=== PATIENT | female | born 1945 | race Caucasian/White ===

== ENCOUNTER 2024-06-05 15:04 | Inpatient (IN) | payer BC ==
[~2024-06-05] VITALS: Ht 160 cm; Wt 88.0 kg
[2024-06-05 15:48] LABS: BASOPHILS % (AUTO) 0.6 % (0.0-2.0); EOSINOPHILS # (AUTO) 0.2 K/uL (0.0-0.7); EOSINOPHILS % (AUTO) 2.7 % (0.0-6.0); HEMATOCRIT 35 % (33-45); HEMOGLOBIN 11.9 g/dL (11.5-14.8); LYMPHOCYTES % (AUTO) 13.6 % (20.0-44.0); MEAN CORPUSCULAR HEMOGLOBIN 31 PG (26.0-33.0); MEAN CORPUSCULAR HGB CONC 34 g/dl (31.0-36.0); MEAN CORPUSCULAR VOLUME 90 fL (82-100); MONOCYTES # (AUTO) 0.5 K/uL (0.1-1.30); MONOCYTES % (AUTO) 6.2 % (2.0-12.0); NEUTROPHILS # (AUTO) 5.9 K/uL (1.8-8.9); NEUTROPHILS % (AUTO) 76.9 % (43.0-81.0); PLATELET COUNT (AUTO) 146 K/uL (150-450); RED CELL DISTRIBUTION WIDTH 14.2 % (11.5-15.0); WHITE BLOOD COUNT (AUTO) 7.7 K/uL (4.3-11.0)
[2024-06-05 16:00] LABS: CALCIUM, SERUM 9.1 mg/dL (8.5-10.1); CARBON DIOXIDE 29 mmol/L (21-32); CHLORIDE 108 mmol/L (98-107); CREATININE 1.3 mg/dL (0.6-1.3); GLUCOSE 111 mg/dL (74-106); POTASSIUM 4.5 mmol/L (3.5-5.1); SODIUM SERUM 145 mmol/L (136-145); UREA NITROGEN, BLOOD 25 mg/dL (7-18)
[2024-06-05 16:13] LABS: ALANINE AMINOTRANSFERASE 58 U/L (12-78); ALBUMIN 3.6 g/dL (3.4-5.0); ASPARTATE AMINOTRANSFERASE 33 U/L (15-37); BILIRUBIN,DIRECT 0.2 mg/dL (0.0-0.2); BILIRUBIN,TOTAL 0.7 mg/dL (0.2-1.0); NT-PRO BNP 5933 pg/mL (0-125); TOTAL PROTEIN, SERUM 6.8 g/dL (6.4-8.2)
[2024-06-05] MEDS ORDERED: SERT100T12 PO (16:14)
[2024-06-05] MEDS ORDERED: CALC-952 PO (16:14)
[2024-06-05] MEDS ORDERED: DIGO250T PO (16:14)
[2024-06-05] MEDS ORDERED: APIX5TAB PO (16:14)
[2024-06-05] MEDS ORDERED: LEVO175T7 PO (16:14)
[2024-06-05] MEDS ORDERED: METO50TA7 PO (16:14)
[2024-06-05] MEDS ORDERED: ATOR20TA PO (16:14)
[2024-06-05] MEDS ORDERED: IRON PO (16:14)
[2024-06-05] MEDS ORDERED: METO-357 PO (16:14)
[2024-06-05] MEDS ORDERED: VITAMIN C PO (16:14)
[2024-06-05 16:25] LABS: ALKALINE PHOSPHATASE 113 U/L (46-116)
[2024-06-05] MEDS ORDERED: IOHEXOL-350 100 ML VIAL IV ONE (17:35)
[2024-06-05] MEDS ORDERED: IV NS 0.9% 250 ML IV ONE (17:36)
[2024-06-05] MEDS ORDERED: CT SWABBABLE VALVE TRANS SET 1 EA INFUS.SET MC ONE (17:36)
[2024-06-05] MEDS ORDERED: hydrALAZINE HCL IV 20 MG VIAL IV PRN (18:00)
[2024-06-05] MEDS ORDERED: ONDANSETRON HCL/PF 4 MG/2 ML VIAL IVP PRN (18:00)
[2024-06-05] MEDS ORDERED: ACETAMINOPHEN 325 MG TABLET PO PRN (18:00)
[2024-06-05] MEDS: DIGOXIN 0.25 MG TABLET PO SCH (18:00)
[2024-06-05] MEDS: FUROSEMIDE 20 MG/2 ML VIAL IV SCH (18:23)
[2024-06-05] MEDS: FUROSEMIDE 40 MG/4 ML VIAL IV ONE (19:30)
[2024-06-05] MEDS: AZITHROMYCIN 500 MG in IV D5W 250 ML IV ONE (20:00)
[2024-06-05] MEDS ORDERED: FUROSEMIDE 20 MG/2 ML VIAL ONE (20:26)
[2024-06-05] MEDS ORDERED: CEFTRIAXONE 1GM BAG (ER ONLY) 50 ML IV ONE (20:27)
[2024-06-05] MEDS: AZITHROMYCIN 500 MG in IV D5W 250 ML IV SCH (20:30)
[2024-06-05] MEDS: ASPIRIN 325 MG TABLET PO ONE (20:30)
[2024-06-05] MEDS: CEFTRIAXONE 1 G in IV D5W 50 ML IV SCH (20:30)
[2024-06-05] MEDS: CEFTRIAXONE 1GM BAG (ER ONLY) 1 GM/50 ML PIGGYBACK IV ONE (20:59)
[2024-06-05] MEDS ORDERED: AZITHROMYCIN 500 MG VIAL ONE (21:04)
[2024-06-05] MEDS: ATORVASTATIN 10 MG TABLET PO SCH (22:00)
[2024-06-05] MEDS: METOPROLOL SUCCINATE 50 MG TAB.SR.24H PO SCH (22:00)
[2024-06-05] MEDS ORDERED: ATORVASTATIN 10 MG TABLET ONE (22:48)
[2024-06-06 04:00] VITALS: BP 138/53; TEMP 97.9; O2SAT 93
[2024-06-06 07:01] LABS: BASOPHILS % (AUTO) 0.4 % (0.0-2.0); EOSINOPHILS # (AUTO) 0.2 K/uL (0.0-0.7); EOSINOPHILS % (AUTO) 3.4 % (0.0-6.0); HEMATOCRIT 34 % (33-45); HEMOGLOBIN 11.6 g/dL (11.5-14.8); LYMPHOCYTES # (AUTO) 0.9 K/uL (0.8-4.8); LYMPHOCYTES % (AUTO) 14.1 % (20.0-44.0); MEAN CORPUSCULAR HEMOGLOBIN 31 PG (26.0-33.0); MEAN CORPUSCULAR HGB CONC 34 g/dl (31.0-36.0); MEAN CORPUSCULAR VOLUME 91 fL (82-100); MONOCYTES # (AUTO) 0.5 K/uL (0.1-1.30); MONOCYTES % (AUTO) 8.1 % (2.0-12.0); NEUTROPHILS # (AUTO) 4.5 K/uL (1.8-8.9); PLATELET COUNT (AUTO) 122 K/uL (150-450); RED BLOOD CELL COUNT(AUTO) 3.71 MIL/uL (4.0-5.2); RED CELL DISTRIBUTION WIDTH 14.5 % (11.5-15.0); WHITE BLOOD COUNT (AUTO) 6.1 K/uL (4.3-11.0)
[2024-06-06 07:18] LABS: ALBUMIN 3.5 g/dL (3.4-5.0); BILIRUBIN,TOTAL 0.9 mg/dL (0.2-1.0); CALCIUM, SERUM 9.1 mg/dL (8.5-10.1); CREATININE 1.1 mg/dL (0.6-1.3); PHOSPHORUS 4.2 mg/dL (2.5-4.9); POTASSIUM 3.9 mmol/L (3.5-5.1); TOTAL PROTEIN, SERUM 6.4 g/dL (6.4-8.2)
[2024-06-06] MEDS: APIXABAN 5 MG TABLET PO SCH (08:41)
[2024-06-06] MEDS: METOPROLOL SUCCINATE 50 MG TAB.SR.24H PO SCH (08:46)
[2024-06-06] MEDS: LEVOTHYROXINE SODIUM 175 MCG TABLET PO SCH (08:47)
[2024-06-06] MEDS: SERTRALINE HCL 50 MG TABLET PO SCH (08:47)
[2024-06-06 09:00] VITALS: BP 134/49; TEMP 98.1; O2SAT 93
[2024-06-06 13:00] VITALS: BP 129/51; TEMP 98.1; O2SAT 91
[2024-06-06 17:00] VITALS: BP 129/51; TEMP 98.2; O2SAT 97
[2024-06-06 20:59] VITALS: BP 139/53; TEMP 98.2; O2SAT 97
[2024-06-06] MEDS: MORPHINE SULFATE INJ 2 MG/ML DISP.SYRIN IV PRN (22:36)
[2024-06-07 00:34] VITALS: BP 135/55; TEMP 98.5; O2SAT 98
[2024-06-07 05:58] VITALS: BP 140/58; TEMP 98.8; O2SAT 97
[2024-06-07] MEDS ORDERED: METO-357 PO (07:05)
[2024-06-07] MEDS ORDERED: FURO20TA4 PO (07:05)
[2024-06-07] MEDS ORDERED: LEVO750T46 PO (07:05)
[2024-06-07] MEDS ORDERED: NITR0.4T48 SL (07:06)
[2024-06-07] MEDS: FUROSEMIDE 20 MG TABLET PO SCH (08:06)
[2024-06-07] MEDS: METOPROLOL SUCCINATE 50 MG TAB.SR.24H PO SCH (08:07)
[2024-06-07 09:00] VITALS: BP 145/53; TEMP 97.8; O2SAT 97
== END 2024-06-07 12:15 | disposition home or self-care (01) | DRG 193 ==
LOC: ER 15:18 → TRANSITION 21:03 → TELE1 22:27
PROVIDERS: ADMIT Internal Medicine; ATTEND Internal Medicine
DX: J18.9 Pneumonia, unspecified organism (principal); I50.33 Acute on chronic diastolic (congestive) heart failure; D69.6 Thrombocytopenia, unspecified; I48.0 Paroxysmal atrial fibrillation; Z79.01 Long term (current) use of anticoagulants; I35.0 Nonrheumatic aortic (valve) stenosis; E03.9 Hypothyroidism, unspecified; G47.33 Obstructive sleep apnea (adult) (pediatric); Z88.2 Allergy status to sulfonamides; I11.0 Hypertensive heart disease with heart failure
CPT/HCPCS: 36415; 71045-TC; 80048-TC; 80053-TC; 80076-TC; 83735-TC; 83880; 84100-TC; 84484-TC; 85025-TC; 87040-TC; 93307-TC; A4223; G0378; J0456; J0696; J1940; J2270; J2405; J7040; J7050; J7060; Q9967

== ENCOUNTER 2024-06-10 12:22 | Emergency (ER) | payer BC ==
[~2024-06-10] VITALS: Ht 160 cm; Wt 87.1 kg
[~2024-06-10 12:22] MED LIST: APIX5TAB PO; ATOR20TA PO; CALC-952 PO; DIGO250T PO; FURO20TA4 PO; IRON PO; LEVO175T7 PO; LEVO750T46 PO; METO-357 PO; NITR0.4T48 SL; SERT100T12 PO; VITAMIN C PO
[2024-06-10 12:34] VITALS: TEMP 97.8
[2024-06-10 13:18] LABS: CALCIUM, SERUM 9.4 mg/dL (8.5-10.1); CARBON DIOXIDE 29 mmol/L (21-32); CHLORIDE 110 mmol/L (98-107); CREATININE 1.4 mg/dL (0.6-1.3); GLUCOSE 100 mg/dL (74-106); POTASSIUM 4.2 mmol/L (3.5-5.1); SODIUM SERUM 148 mmol/L (136-145); UREA NITROGEN, BLOOD 26 mg/dL (7-18)
[2024-06-10 13:30] LABS: NT-PRO BNP 4714 pg/mL (0-125)
[2024-06-10 13:44] LABS: BASOPHILS % (AUTO) 0.7 % (0.0-2.0); EOSINOPHILS # (AUTO) 0.2 K/uL (0.0-0.7); HEMATOCRIT 38 % (33-45); HEMOGLOBIN 12.7 g/dL (11.5-14.8); LYMPHOCYTES # (AUTO) 0.8 K/uL (0.8-4.8); MEAN CORPUSCULAR HEMOGLOBIN 31 PG (26.0-33.0); MEAN CORPUSCULAR HGB CONC 34 g/dl (31.0-36.0); MEAN CORPUSCULAR VOLUME 90 fL (82-100); MONOCYTES # (AUTO) 0.4 K/uL (0.1-1.30); MONOCYTES % (AUTO) 6.7 % (2.0-12.0); NEUTROPHILS # (AUTO) 4.4 K/uL (1.8-8.9); NEUTROPHILS % (AUTO) 75.6 % (43.0-81.0); PLATELET COUNT (AUTO) 152 K/uL (150-450); RED BLOOD CELL COUNT(AUTO) 4.16 MIL/uL (4.0-5.2); RED CELL DISTRIBUTION WIDTH 14.2 % (11.5-15.0); WHITE BLOOD COUNT (AUTO) 5.8 K/uL (4.3-11.0)
[2024-06-10 14:02] VITALS: BP 119/75; O2SAT 97
== END 2024-06-10 14:00 | disposition home or self-care (01) ==
LOC: ER 12:24
DX: R55 Syncope and collapse (principal); R09.89 Other specified symptoms and signs involving the circulatory and respiratory systems; R07.9 Chest pain, unspecified; R06.02 Shortness of breath; I35.0 Nonrheumatic aortic (valve) stenosis; I48.91 Unspecified atrial fibrillation; Z79.01 Long term (current) use of anticoagulants; Z79.890 Hormone replacement therapy; Z79.899 Other long term (current) drug therapy; Z88.2 Allergy status to sulfonamides
CPT/HCPCS: 36415; 71045-TC; 80048-TC; 83880; 84484-TC; 85025-TC